=== PATIENT | female | born 1990 | race Caucasian/White ===

== ENCOUNTER 2017-03-30 11:23 | Outpatient (CLI) | payer MEDICAID ==
[2017-03-31 12:42] LABS: HEPATITIS B SURFACE ANTIGEN NON-REACTIVE (NON-REACTIVE)
[2017-03-31 12:57] LABS: HEPATITIS C ANTIBODY NON-REACTIVE (NON-REACTIVE)
== END 2017-03-30 11:24 | disposition home or self-care (01) ==
LOC: LAB 11:23
PROVIDERS: ATTEND Obstetrics & Gynecology
DX: Z11.3 Encounter for screening for infections with a predominantly sexual mode of transmission (principal)
CPT/HCPCS: 36415; 81599; 86695; 86696; 86803; 87340

== ENCOUNTER 2017-04-06 08:48 | Outpatient (CLI) | payer MEDICAID ==
[2017-04-07 13:36] LABS: HIV AG/AB 4TH GEN NON-REACTIVE (NON-REACTIVE)
== END 2017-04-06 08:49 | disposition home or self-care (01) ==
LOC: LAB.N 08:48
PROVIDERS: ATTEND Obstetrics & Gynecology
DX: A63.8 Other specified predominantly sexually transmitted diseases (principal)
CPT/HCPCS: 36415; 87389

== ENCOUNTER 2017-05-03 00:38 | Emergency (ER) | payer MEDICAID ==
[2017-05-03 00:48] VITALS: BP 128/65
[2017-05-03] MEDS ORDERED: BENZONATATE 100 MG CAPSULE PO STA (01:02)
--- NOTE | 2017-05-03 01:05 | ED Physician Documentation ---
PD HPI URI - Stated complaint Stated Complaint: COUGH,CONGESTION,SORE THROAT - Chief complaint Chief Complaint: Resp - History obtained from History obtained from: Patient - History of Present Illness Timing - onset: How many days ago (2) Timing duration: Days (2) Timing details: Still present Associated symptoms: Sore throat, Dry cough. No: Fever - Treatment prior to arrival Treatment prior to arrival: Tylenol - Additional information Additional information: The patient is a 26-year-old female who presents with nonproductive cough of 2 days duration. She reports chest discomfort with coughing. She also reports associated headache and sore throat. She denies fever, abdominal pain, or vomiting. She has been using Tylenol without relief. She does not smoke cigarettes. Her vaccinations are up-to-date, but she has not had a flu vaccination this year. Review of Systems Constitutional: denies: Fever Ears: denies: Ear pain Nose: reports: Congestion Throat: reports: Sore throat Cardiac: reports: Chest pain / pressure (With coughing.) Respiratory: reports: Cough. denies: Dyspnea GI: denies: Abdominal Pain, Vomiting, Diarrhea : denies: Dysuria Skin: denies: Rash Neurologic: reports: Headache PD PAST MEDICAL HISTORY - Past Medical History Past Medical History: Yes Neuro: Other Other Past Medical History: Meningitis - Past Surgical History Past Surgical History: Yes HEENT: Tonsil/Adenoidectomy - Present Medications Home Medications: Ambulatory Orders Medication Instructions Recorded Confirmed Benzonatate [Tessalon Perle] 100 mg PO BID PRN #14 capsule 05/03/17 - Allergies Allergies/Adverse Reactions: Allergies Allergy/AdvReac Type Severity Reaction Status Date / Time No Known Drug Allergies Allergy Verified 05/03/17 01:09 - Social History Does the pt smoke?: No Smoking Status: Never smoker Does the pt drink ETOH?: Yes ETOH Use: Wine Does the pt have substance abuse?: No - Immunizations Immunizations are current?: Yes PD ED PE NORMAL - Vitals Vital signs reviewed: Yes (Normal) - General General: Alert and oriented X 3, Well developed/nourished, Other (Has sporadic coughing while in the emergency department.) - HEENT HEENT: Atraumatic, Ears normal, Moist mucous membranes, Pharynx benign - Neck Neck: Supple, no meningeal sign, No adenopathy - Cardiac Cardiac: RRR, No murmur - Respiratory Respiratory: Clear bilaterally - Abdomen Abdomen: Soft, Non tender - Back Back: No CVA TTP - Derm Derm: No rash - Extremities Extremities: No edema, No calf tenderness / cord - Neuro Neuro: Alert and oriented X 3, No motor deficit, Normal speech Results - Vitals Vitals: Vital Signs - 24 hr 05/03/17 05/03/17 00:45 00:48 Temperature 36.8 C Heart Rate 79 Respiratory 16 Rate Blood Pressure 128/65 O2 Saturation 100 Oxygen O2 Source Room air PD MEDICAL DECISION MAKING - ED course Complexity details: considered differential, d/w patient ED course: The patient's presentation is most consistent with viral upper respiratory infection. Her presentation does not suggest pneumonia, pharyngitis, or peritonsillar abscess. Antibiotics are not clinically indicated, and I discussed this with the patient. Treatment in the emergency department included administration of Tessalon 100 mg orally. She is being discharged with prescription for Tessalon. I discussed with her the expected course of illness, symptomatic treatment and outpatient follow-up, as well as potentially worrisome signs or symptoms that should prompt reevaluation in the emergency department. Departure - Departure Disposition: 01 Home, Self Care Clinical Impression: Upper respiratory tract infection Qualifiers: URI type: unspecified viral URI Qualified Code(s): J06.9 - Acute upper respiratory infection, unspecified Condition: Stable Instructions: ED URI Viral Follow-Up: Ericka Greer PA-C [Primary Care Provider] - Prescriptions: Benzonatate [Tessalon Perle] 100 mg PO BID PRN #14 capsule PRN Reason: Cough Comments: Continue using Tylenol or ibuprofen if needed for fever or discomfort. You can use Tessalon as prescribed if needed for cough. You can use Benadryl when lying down at night if needed for post-nasal drainage. Follow up with your primary physician within 2 weeks if not completely resolved. Return to the emergency department if you develop increasing difficulty breathing, or otherwise worsening symptoms. Discharge Date/Time: 05/03/17 01:18
== END 2017-05-03 01:18 | disposition home or self-care (01) ==
LOC: ED 00:38
DX: J06.9 Acute upper respiratory infection, unspecified (principal)
CPT/HCPCS: 99283; A9270

== ENCOUNTER 2017-09-22 19:17 | Emergency (ER) | payer MEDICAID ==
[2017-09-22 19:33] VITALS: BP 138/71
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
== END 2017-09-22 21:15 | disposition home or self-care (01) ==
LOC: ED 19:17
DX: S60.222A Contusion of left hand, initial encounter (principal); W23.0XXA Caught, crushed, jammed, or pinched between moving objects, initial encounter; Y92.810 Car as the place of occurrence of the external cause
CPT/HCPCS: 99282; 99283

== ENCOUNTER 2017-10-05 17:49 | Emergency (ER) | payer MEDICAID ==
--- NOTE | 2017-10-05 19:33 | ED Physician Documentation ---
PD HPI HEADACHE - Stated complaint Stated Complaint: NORIEGA - Chief complaint Chief Complaint: Neuro - History obtained from History obtained from: Patient - History of Present Illness Timing - onset: How many days ago (4) Timing - onset during: Light activity Timing - details: Gradual onset, Still present Worst headache ever?: No: Worst headache ever? (had severe headache with viral meningitis years ago. This does not feel the same.) Location: Front Quality: Throbbing, Aching Associated symptoms: Nausea, Other (nasal congestion and purulent nasal discharge. Pain with nose blowing. Some sore throat.). No: Fever, Vomiting Worsened by: No: Light, Noise Contributing factors: Recent illness (uri symptoms) Similar symptoms before: Has not had sx before Recently seen: Not recently seen Review of Systems Constitutional: reports: Myalgias. denies: Fever, Chills Nose: reports: Rhinorrhea / runny nose, Congestion, Sinus pressure / pain Throat: reports: Sore throat Respiratory: denies: Dyspnea, Cough GI: reports: Nausea. denies: Abdominal Pain, Vomiting, Diarrhea : denies: Dysuria, Frequency Skin: denies: Rash, Lesions PD PAST MEDICAL HISTORY - Past Medical History Cardiovascular: None Respiratory: Asthma Neuro: None Endocrine/Autoimmune: None GI: GERD GOLF CART ATTENDANT: None : None HEENT: None Psych: None Musculoskeletal: None Derm: None - Past Surgical History Past Surgical History: Yes HEENT: Tonsil/Adenoidectomy - Present Medications Home Medications: Ambulatory Orders Medication Instructions Recorded Confirmed Amoxicillin 500 mg PO TID #20 capsule 10/05/17 Dexamethasone [Decadron] 4 mg PO DAILY #5 tablet 10/05/17 HYDROcod/ACETAM 5/325 [[place] 5/325] 1 tab PO Q6H PRN #15 tablet 10/05/17 Ondansetron Odt [Zofran] 4 mg TL Q6H PRN #15 tablet 10/05/17 - Allergies Allergies/Adverse Reactions: Allergies Allergy/AdvReac Type Severity Reaction Status Date / Time No Known Drug Allergies Allergy Verified 09/22/17 19:33 - Social History Does the pt smoke?: No Smoking Status: Never smoker Does the pt drink ETOH?: Yes Does the pt have substance abuse?: No - Immunizations Immunizations are current?: Yes PD ED PE NORMAL - Vitals Vital signs reviewed: Yes - General General: Alert and oriented X 3, Well developed/nourished - HEENT HEENT: PERRL, Ears normal, Moist mucous membranes, Pharynx benign, Other (some sinus tenderness to percussion, mainly right maxillary) - Neck Neck: Supple, no meningeal sign, No adenopathy Results - Vitals Vitals: Oxygen O2 Source Room air PD MEDICAL DECISION MAKING - ED course Complexity details: considered differential (symptoms referrable to sinuses. ), d/w patient - Sepsis Event Vital Signs: Oxygen O2 Source Room air Departure - Departure Disposition: 01 Home, Self Care Clinical Impression: Headache Qualifiers: Headache type: unspecified Headache chronicity pattern: acute headache Intractability: not intractable Qualified Code(s): R51 - Headache Sinusitis, acute Qualifiers: Sinusitis location: unspecified location Recurrence: non-recurrent Qualified Code(s): J01.90 - Acute sinusitis, unspecified Condition: Stable Record reviewed to determine appropriate education?: Yes Instructions: ED Headache Migraine, ED Sinusitis Abx Tx Follow-Up: Demond Mckeon DO [Primary Care Provider] - Prescriptions: Amoxicillin 500 mg PO TID #20 capsule Dexamethasone [Decadron] 4 mg PO DAILY #5 tablet HYDROcod/ACETAM 5/325 [[place] 5/325] 1 tab PO Q6H PRN #15 tablet PRN Reason: Pain Ondansetron Odt [Zofran] 4 mg TL Q6H PRN #15 tablet PRN Reason: Nausea / Vomiting Comments: Your symptoms sound like sinusitis which may be allergies and possibly infection. We will treat that with anti-inflammatory and antibiotic. It does sound like some component of the headache is migraine. Hopefully I will be improved now and stay improved. Use ondansetron if needed for nausea. Tylenol or hydrocodone if needed for recurrent headache. Recheck if not fully better over the next several days or so. Discharge Date/Time: 10/05/17 22:08
[2017-10-05] MEDS ORDERED: DEXAMETHASONE 10 MG/ML VIAL IVP STA (20:10)
[2017-10-05] MEDS ORDERED: SODIUM CHLORIDE 0.9% 1,000 ML IV ONE (20:10)
[2017-10-05] MEDS ORDERED: KETOROLAC 60 MG/2 ML VIAL IVP STA (20:10)
[2017-10-05] MEDS ORDERED: PROCHLORPERAZINE 10 MG/2 ML VIAL IVP STA (20:10)
[2017-10-05] MEDS ORDERED: AMOXICILLIN 250 MG CAPSULE PO STA (20:10)
[2017-10-05 21:29] VITALS: BP 134/67
== END 2017-10-05 22:08 | disposition home or self-care (01) ==
LOC: ED 17:49
DX: J01.90 Acute sinusitis, unspecified (principal); R51 Headache; J45.909 Unspecified asthma, uncomplicated; K21.9 Gastro-esophageal reflux disease without esophagitis
CPT/HCPCS: 96361; 96374; 96375; 99283; 99284; A9270

== ENCOUNTER 2017-10-23 07:42 | Outpatient (CLI) | payer MEDICAID ==
--- NOTE | 2017-10-23 08:26 | CT Report ---
Procedure Date: 10/23/2017 Accession Number: [id number] / [id number] Procedure: CT - Head W/O CPT Code: FULL RESULT: EXAM: CT HEAD EXAM DATE: 10/23/2017 07:57 AM. CLINICAL HISTORY: HEADACHE. COMPARISON: None. TECHNIQUE: Multiaxial CT images were obtained from the foramen magnum to the vertex. Reformats: Sagittal and coronal. IV contrast: None. In accordance with CT protocol optimization, one or more of the following dose reduction techniques were utilized for this exam: automated exposure control, adjustment of mA and/or KV based on patient size, or use of iterative reconstructive technique. FINDINGS: Parenchyma: No intraparenchymal hemorrhage. No evidence of mass, midline shift, or CT findings of infarction. Mckee-white differentiation is distinct. Extraaxial Spaces: Normal for age. No subdural or epidural collections identified. Ventricles: Normal in size and position. Sinuses and Orbits: Imaged paranasal sinuses, orbits, and mastoids show no significant abnormality. Bones: No evidence of fracture or calvarial defect. Other: None. IMPRESSION: Normal head CT. [facility]
== END 2017-10-23 07:43 | disposition home or self-care (01) ==
LOC: DI 07:42
PROVIDERS: ATTEND Family Medicine
DX: R51 Headache (principal)
CPT/HCPCS: 70450